=== PATIENT | male | born 1955 | race Two or more races ===

== ENCOUNTER 2019-09-14 05:31 | Inpatient (IN) | payer OTHER ==
[~2019-09-14] VITALS: Ht 157.5 cm; Wt 123.0 kg
[~2019-09-14 05:31] MED LIST: ADULT ASPIRIN R81 MG PO; DOXAZOSIN MESYLA2 MG PO; FOLIC PO; ISORBIDE PO; JANUVIA100 MG PO; LOSARTAN-HCTZ1 EAC1 PO
[2019-09-14] MEDS ORDERED: ULTRAM50 MG PO (09:31)
[2019-09-14] MEDS ORDERED: ZOFRAN4 MG PO (09:31)
[2019-09-14] MEDS ORDERED: TYLENOL ARTHRI650 MG PO (09:31)
[2019-09-14] MEDS ORDERED: MIRALAX17 GM PO (09:31)
[2019-09-17] MEDS ORDERED: ULTRAM50 MG PO (09:26)
== END 2019-09-17 10:19 | disposition home or self-care (01) | DRG 351 ==
LOC: CIR.AMB 05:31 → SURH 19:25
PROVIDERS: ADMIT Surgery
PROC: 0Y9 Anatomical Regions, Lower Extremities, Drainage (ICD-10-PCS; 2019-09-14)
PROC: 0D9W40Z Drainage of Peritoneum with Drainage Device, Percutaneous Endoscopic Approach (ICD-10-PCS; 2019-09-14)
PROC: BW21ZZZ Computerized Tomography (CT Scan) of Abdomen and Pelvis (ICD-10-PCS; 2019-09-14)
PROC: 0YU64JZ Supplement Left Inguinal Region with Synthetic Substitute, Percutaneous Endoscopic Approach (ICD-10-PCS; principal; 2019-09-14 13:30)
DX: K40.91 Unilateral inguinal hernia, without obstruction or gangrene, recurrent (principal); D62 Acute posthemorrhagic anemia; K68.11 Postprocedural retroperitoneal abscess; K91.841 Postprocedural hemorrhage of a digestive system organ or structure following other procedure; L76.32 Postprocedural hematoma of skin and subcutaneous tissue following other procedure; N49.2 Inflammatory disorders of scrotum; N99.89 Other postprocedural complications and disorders of genitourinary system; R33.8 Other retention of urine; E65 Localized adiposity; I10 Essential (primary) hypertension; E11.9 Type 2 diabetes mellitus without complications; Z79.4 Long term (current) use of insulin

== ENCOUNTER 2020-10-16 05:58 | Day surgery (SDC) | payer OTHER ==
[~2020-10-16 05:58] MED LIST changes: +MIRALAX17 GM PO; +TYLENOL ARTHRI650 MG PO; +ULTRAM50 MG PO; +ZOFRAN4 MG PO
[2020-10-16] MEDS ORDERED: TYLENOL ARTHRI650 MG PO (08:53)
[2020-10-16] MEDS ORDERED: ULTRAM50 MG PO (08:53)
== END 2020-10-16 11:40 | disposition home or self-care (01) ==
LOC: CIR.AMB 05:58
PROVIDERS: ATTEND Surgery
DX: L72.0 Epidermal cyst (principal); Z20.828 Contact with and (suspected) exposure to other viral communicable diseases